=== PATIENT | male | born 1940 | race Caucasian/White ===

== ENCOUNTER 2017-04-06 12:56 | Inpatient (IN) | payer MEDICARE, MEDICAID ==
[2017-04-06] MEDS ORDERED: Acetaminophen TAB* 325 MG PO PRN (18:59)
[2017-04-06] MEDS ORDERED: Ondansetron INJ* 2 MG/ML VIAL IV PRN (18:59)
[2017-04-06] MEDS ORDERED: NS 0.9% 1000 ML* 1,000 ML IV SCH (19:15)
[2017-04-06 19:57] LABS: Hematocrit 35 % (42-52); Hemoglobin 11.6 g/dl (14.0-18.0); Mean Corpuscular HGB Conc 34 g/dl (31-36); Mean Corpuscular Hemoglobin 31 pg (27-31); Mean Corpuscular Volume 92 fL (80-94); Mean Platelet Volume 7 um3 (7.4-10.4); Red Blood Count 3.78 10^6/ul (4.0-5.4); Red Cell Distribution Width 15 % (10.5-15); White Blood Count 7.2 10^3/ul (3.5-10.8)
[2017-04-06 20:09] LABS: Albumin 3.4 g/dL (3.2-5.2); BUN/Creatinine Ratio 17.1 (8-20); Calcium 8.2 mg/dL (8.6-10.3); EGFR Non-African American 54.4 (>60); Globulin 3.3 g/dL (2-4); Potassium 3.7 mmol/L (3.5-5.0); Total Bilirubin 0.3 mg/dL (0.2-1.0); Total Protein 6.7 g/dL (6.4-8.9)
[2017-04-06] MEDS ORDERED: Furosemide TAB* 40 MG PO SCH (21:00)
[2017-04-06] MEDS: Albuterol HFA INHALER* 8 gm MDI INH SCH (21:03)
[2017-04-06] MEDS: Potassium Chlor TAB* 20 MEQ TAB.ER PO SCH (21:17)
[2017-04-06] MEDS: Montelukast Sodium TAB* 10 MG PO SCH (21:17)
[2017-04-06] MEDS: Metoprolol Succinate XL TAB* 50 MG PO SCH (21:17)
[2017-04-06] MEDS: Atorvastatin* 10 MG TAB PO SCH (21:18)
--- NOTE | 2017-04-06 22:20 | HP ---
CC: Dr. Fisher, phone number [phone]; Dr. Juarez; Dr. Hartman * HISTORY AND PHYSICAL: DATE OF ADMISSION: 04/06/17 TIME OF EVALUATION: 6:30 p.m. PRIMARY CARE PROVIDER: Dr. Fisher. CONSULTING AUTOMOTIVE PARTS ADVISOR: Dr. Juarez. CONSULTING GENERAL SURGEON: Dr. Hartman. CHIEF COMPLAINT: "I feel okay now." HISTORY OF PRESENT ILLNESS: Mr. Lamas is a 76-year-old male with a past medical history of dementia, aFib, mild mental retardation, esophagitis, prior history of intestinal perforation requiring resection and anastomosis, who complains at [facility] of bright red blood per rectum and "seeing stars." The patient is a poor historian and cannot provide further information at this time. He denies nausea, vomiting, fever, chills, abdominal pain. At [facility] the patient had a CT of the abdomen and pelvis that showed colonic surgery with dilatation of the colon proximal to anastomosis in the pelvis and the case was discussed with Dr. Gonzáles and his recommendation was to transfer to a facility with and for this reason the patient was transferred to us. At the time of my interview, he states he is feeling well and he states that he is no longer seeing stars and he is actually feeling hungry. PAST MEDICAL HISTORY: 1. Dementia/mild mental retardation. 2. Hypertension. 3. Hyperlipidemia. 4. AFib. 5. GERD. 6. Remote history of intestinal perforation 40 years ago with resection and anastomosis. 7. Renal mass. MEDICATION LIST: 1. Albuterol HFA 2 puffs inhaled q.6 hours. 2. Fluticasone nasal spray 2 sprays to both nares daily. 3. Furosemide 80 mg p.o. b.i.d. 4. Guaifenesin ER 600 mg p.o. b.i.d. as needed for cough. 5. Hydrocortisone 1% topical to legs b.i.d. as needed for itching. 6. Linzess 145 mcg p.o. daily. 7. Loratadine 10 mg p.o. daily. 8. Losartan 100 mg p.o. daily. 9. Metoprolol succinate 50 mg p.o. b.i.d. 10. Montelukast 10 mg p.o. at bedtime. 11. Multivitamin 1 tablet p.o. daily. 12. Omeprazole 40 mg p.o. daily. 13. Potassium chloride 20 mEq p.o. b.i.d. 14. Senna 1 tablet p.o. daily. 15. Simvastatin 20 mg p.o. at bedtime. 16. Tamsulosin 0.4 mg p.o. daily. ALLERGIES: With PENICILLIN and SULFA the patient had a rash. FAMILY HISTORY: As per records from [facility]. The patient has a family history of stroke. SOCIAL HISTORY: There is no history of tobacco, alcohol or drug use. He lives at [facility]. Surrogate decision maker is his sister, Rika Donnelly, phone number is [phone]. REVIEW OF SYSTEMS: I am unable to obtain complete review of systems as the patient's dementia, but all the pertinent findings are in the HPI. PHYSICAL EXAMINATION GENERAL: The patient is a pleasant elderly male, sitting up in the bed in no acute distress. VITAL SIGNS: Temperature 97.7, heart rate is 77, respiratory rate is 18, oxygen saturation is 98% on room air, blood pressure is 124/68. HEENT: Pupils are equal. The patient appears to have had cleft lip surgery. CHEST: Breath sounds present bilaterally with no added sounds. CVS: Normal S1, S2. Irregular. ABDOMEN: Shows mild distention, but it is soft, nontender, nondistended. Bowel sounds are present. EXTREMITIES: No edema. NEUROLOGIC: He is alert, awake, and oriented x2 to self and place. He is able to move all 4 extremities. LABORATORY AND IMAGING DATA: CBC done at [place] showed WBC of 6.5, hemoglobin of 12.3, hematocrit of 36, platelets of 292 with 66% neutrophils. Stool for occult blood was positive. UA was within normal limits. Chemistry showed sodium of 142, potassium 3.6, chloride of 105, bicarbonate of 28, BUN of 24, creatinine of 1.4 (his baseline), glucose of 97, calcium of 8.2, and normal LFTs with albumin of 3.5. INR was 0.[address] was [address] of the abdomen without contrast showed cardiomegaly, lung bases are clear, and air distended colon elevating the right hemidiaphragm, colonic anastomosis in the pelvis with distended colon proximal to anastomosis with distal constipation pattern, small bowel with normal caliber, mass effect from the distended colon, and the liver, spleen, adrenals, pancreas grossly unremarkable. Large bilateral renal cysts. Bilateral inguinal hernias with fat. ASSESSMENT AND PLAN: Mr. Lamas is a 76-year-old male with the past medical history of dementia, mild mental retardation, hypertension, hyperlipidemia, atrial fibrillation, not on anticoagulation, gastroesophageal reflux disease, history of intestinal perforation 40 years ago requiring resection with anastomosis, who was transferred from [place] emergency room due to lower gastrointestinal bleed "seeing stars." 1. Lower GI bleed. It is unclear when this problem started as the patient is a poor historian. His stool for occult blood was positive at [place], but his H and H is 12/36. He will be admitted for observation to the medical floor. We are going to monitor his H and H and I requested a GI consult with Dr. Juarez. For now, I am going to keep him on a clear liquid diet and considering his history of colonic resection with anastomosis, he may require a colonoscopy to evaluate that area. At this point he states that he feels well and he is not "seeing stars anymore. " Another possibility is that his symptoms had nothing to do with the bleed and are actually secondary to dehydration. The patient is on a hefty dose of furosemide 80 mg twice a day and he could be dehydrated and showing signs of orthostatic hypotension. We are going to check orthostatic vital signs at this time. I am going to hold his furosemide for now and give him gentle IV hydration. The CT shows colonic distention, but the patient does not appear to be obstructed at this time. His belly is soft, nontender. He has normal bowel sounds and he states that he had a bowel movement earlier today. I suspect this distention is likely chronic associated with his prior surgery 40 years ago but in any case General Surgery for consultation was requested with Dr. Hartman. 2. Hypertension. We will continue his losartan, metoprolol, with holding parameters. 3. Atrial fibrillation. The patient is not on anticoagulation, we will continue metoprolol. 4. DVT prophylaxis: The patient has a score of 2 with the DVT Prophylaxis Assessment Guide and pharmacological prophylaxis is contraindicated in the setting of GI bleed. He will have SCDs while in bed. 5. Code status: The patient has a healthcare proxy that indicates that the patient would not want life sustaining treatment if he had any irreversible condition, but I do not see a [id number] on the record. His sister was called but did not grape picker the phone, we will try again to clarify his code status. TIME SPENT: Approximately 60 minutes was spent in the patient interview, medical records review, physical examination to complete this admission; more than half of this time was spent [id number] with the patient and coordination of care. [id number]/[facility] #: [id number] CARLOS
[2017-04-07] MEDS: Albuterol HFA INHALER* 8 gm MDI INH SCH ×4 (03:09→19:58)
[2017-04-07 06:22] LABS: Hematocrit 36 % (42-52); Hemoglobin 11.8 g/dl (14.0-18.0); Mean Corpuscular HGB Conc 33 g/dl (31-36); Mean Corpuscular Hemoglobin 30 pg (27-31); Mean Corpuscular Volume 92 fL (80-94); Mean Platelet Volume 7 um3 (7.4-10.4); Red Blood Count 3.88 10^6/ul (4.0-5.4); Red Cell Distribution Width 15 % (10.5-15); White Blood Count 7.1 10^3/ul (3.5-10.8)
[2017-04-07 06:44] LABS: BUN/Creatinine Ratio 14.2 (8-20); Calcium 8.7 mg/dL (8.6-10.3); EGFR African American 71.3 (>60); EGFR Non-African American 55.4 (>60); Potassium 3.9 mmol/L (3.5-5.0)
[2017-04-07] MEDS: Fluticasone NASAL SPRAY 50MCG* 16 gm SPRAY BTL BOTH NARES SCH (08:45)
[2017-04-07] MEDS: Tamsulosin CAP* 0.4 MG PO SCH (09:17)
[2017-04-07] MEDS: Losartan TAB* 25 MG PO SCH (09:17)
[2017-04-07] MEDS: Omeprazole CAP* 20 MG PO SCH (09:17)
[2017-04-07] MEDS: Multivitamins/Minerals TAB PO SCH (09:17)
[2017-04-07] MEDS: Metoprolol Succinate XL TAB* 50 MG PO SCH ×2 (09:17→20:12)
[2017-04-07] MEDS: Senna TAB PO SCH (09:17)
[2017-04-07] MEDS: Cetirizine* 10 MG TAB PO SCH (09:17)
[2017-04-07] MEDS: Potassium Chlor TAB* 20 MEQ TAB.ER PO SCH ×2 (09:17→20:16)
--- NOTE | 2017-04-07 10:44 | PN ---
Progress Note - Progress Note Date of Service: 04/07/17 SOAP: Subjective: [] Patient seen earlier this morning Full consult dictated He was admitted with rectal bleeding. CT at [facility] yesterday shows dilated right and transverse colon with stool distally. He has had a colon resection many years ago-records not available. Review of CT's of abd/pelvis done at [facility] in 2101 and 2014 show similar proximal colon distension as the study from yesterday. I suspect this is a motility or post-operative finding--he has no abdominal pain and is comfortable. There does not appear to be continued rectal bleeding. He shows no signs of obstruction. Observation recommended from a surgical standpoint.
--- NOTE | 2017-04-07 12:47 | PN ---
Subjective Date of Service: 04/07/17 Interval History: HOSPITALIST PROGRESS NOTE Patient seen and examined at bedside. He offers no new complaints at this time. No further BMs or BRBPR. Denies abdominal pain and feels hungry. Family History: Unchanged from Admission Social History: Unchanged from Admission Past Medical History: Unchanged from Admission Objective Active Medications: Acetaminophen (Tylenol Tab*) 650 mg PO Q6H PRN PRN Reason: pain/fever Albuterol (Ventolin Hfa Inhaler*) 2 puff INH Q6H [facility] Last Admin: 04/07/17 12:27 Dose: 2 puff Atorvastatin Calcium (Lipitor*) 10 mg PO BEDTIME [facility] Last Admin: 04/06/17 21:18 Dose: 10 mg Cetirizine HCl (Zyrtec*) 10 mg PO DAILY [facility] Last Admin: 04/07/17 09:17 Dose: 10 mg Fluticasone Propionate (Flonase Nasal [place] 50mcg*) 2 spray BOTH NARES DAILY [facility] Furosemide (Lasix Tab*) 40 mg PO 0800,1700 [facility] Sodium Chloride (Ns 0.9% 1000 Ml*) 1,000 mls @ 75 mls/hr IV PER RATE [facility] Last Admin: 04/06/17 21:52 Dose: 75 mls/hr Losartan Potassium (Cozaar Tab*) 100 mg PO DAILY [facility] Last Admin: 04/07/17 09:17 Dose: 100 mg Metoprolol Succinate (Toprol Xl Tab*) 50 mg PO BID [facility] Last Admin: 04/07/17 09:17 Dose: 50 mg Montelukast Sodium (Singulair Tab*) 10 mg PO BEDTIME [facility] Last Admin: 04/06/17 21:17 Dose: 10 mg Multivitamins/Minerals (Theragran/Minerals Tab*) 1 tab PO DAILY [facility] Last Admin: 04/07/17 09:17 Dose: 1 tab Omeprazole (Prilosec Cap*) 40 mg PO DAILY@0730 [facility] Last Admin: 04/07/17 09:17 Dose: 40 mg Ondansetron HCl (Zofran Inj*) 4 mg IV Q6H PRN PRN Reason: NAUSEA Potassium Chloride (Klor Con Er Tab*) 20 meq PO BID [facility] Last Admin: 04/07/17 09:17 Dose: 20 meq Senna (Senokot Tab*) 1 tab PO DAILY [facility] Last Admin: 04/07/17 09:17 Dose: 1 tab Tamsulosin HCl (Flomax Cap*) 0.4 mg PO DAILY [facility] Last Admin: 04/07/17 09:17 Dose: 0.4 mg Vital Signs - 8 hr 04/07/17 04/07/17 07:47 11:28 Temperature 98.1 F 98.1 F Pulse Rate 67 52 Respiratory 14 14 Rate Blood Pressure 127/72 112/62 (mmHg) O2 Sat by Pulse 96 99 Oximetry Oxygen Devices in Use Now: None Appearance: Pleasant elderly male lying in bed in NAD. Eyes: No Scleral Icterus Ears/Nose/Mouth/Throat: Mucous Membranes Moist Neck: Trachea Midline Respiratory: Symmetrical Chest Expansion and Respiratory Effort, Clear to Auscultation Cardiovascular: RRR - Normal S1 and S2 Abdominal: - - Soft, mild distention, NT, BS+ Neurological: - - AAOx2 (self and place), RHOADES Result Diagrams: 04/07/17 06:05 04/07/17 06:05 Assess/Plan/Problems-Billing Assessment: Mr. Lamas is a 76yo M with PMH of dementia/mild MR, HTN, HLD, Afib, GERD, intestinal perforation with resection and anastomosis > 40 years ago, transferred from [facility] due to BRBPR and "seeing stars". - Patient Problems (1) Lower GI bleed Comment: - No further episodes, H/H remains stable. - GI input appreciated - would not recommend any further w/u at this point. His colonic distention appears to be chronic and he has had no more episodes of bleeding at this point with no significant drop in his H/H. - Start consistent carb diet as per GI recommendation (to avoid fermentation). (2) Dizziness Comment: - Suspect his "seeing starts" complaints is likely associated with dehydration associated with diuretic use. - He feels better today. - Resume Furosemide but at a lower dose. (3) HTN (hypertension) Comment: - Controlled. - Continue Losartan, Metoprolol with hold paramenters. (4) Afib Comment: - Continue Metoprolol. (5) Physical deconditioning Comment: - PT/OT consult. (6) DVT prophylaxis Comment: - SCDs. - Pharmacological prophylaxis contraindicated in the setting of LGI bleed. (7) DNR (do not resuscitate) Current Visit: Yes Status: Acute
--- NOTE | 2017-04-07 15:18 | CONS ---
GASTROENTEROLOGY CONSULT: DATE OF CONSULT: 04/07/17 CONSULTING PHYSICIAN: Debo Patterson REASON FOR CONSULT: Colonic distention and rectal bleeding in a man who complained of rectal bleeding and said he was seeing stars upon transfer. HISTORY OF PRESENT ILLNESS: This 76-year-old man, a long-term resident of an assisted living facility ([facility]) was transferred over having reported seeing blood and complaining of seeing stars. In the emergency room here, he had said that he was feeling better. Under observation overnight, he has not had any vomiting, fever or passage of anymore blood. There has been just a little bit of smeared stool. CT scan yesterday at [place] did show a dilated transverse and right colon. The rectum had a little bit of liquid stool and was slightly distended and then there was a long segment best seen on the sagittal CAT scan images 77 to 83 with a stricture and anastomotic calcification. He had had a left colon resection 40 years ago for perforation, the exact nature unknown. Dr. Hartman who can remote into [facility] records found that he has had a dilated colon on several imaging studies over the last 6 to 7 years. His sister said his abdomen always looks a little distended. He has not had any fever. PAST MEDICAL HISTORY: 1. Dementia - mental retardation. 2. Hypertension. 3. Hyperlipidemia. 4. Atrial fibrillation. 5. GERD. 6. Status post left colonic resection with chronic right colon dilation. 7. Renal mass - not fully explored. MEDICATIONS: The list reviewed and includes: 1. Linzess. 2. Omeprazole. 3. Senna. 4. Simvastatin. SOCIAL HISTORY: He is a long-term resident of [facility]. REVIEW OF SYSTEMS: The nature and location of his colon resection is unknown even to his sister. The details of the renal mass are not known. Apparently, he has a good appetite. He has no history of CVA or seizure, hematuria or anemia. PHYSICAL EXAM: He has a cleft lip. He is conversant and pleasant. He has no adenopathy. His lungs are clear and heart sounds are normal. The abdomen is distended and soft. Bowel sounds are present and normal. Perianal inspection is normal and rectal reveals dilated rectum filled with soupy brown stool that floods out with lateral pressure on the anal canal, probably 400 cc. Extremities show no edema. DIAGNOSTIC STUDIES: CT reviewed - transverse colon of 11 cm. The sagittal views show a collapsed area of sigmoid. 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 This has resulted in fermentation of the stool and a typical presentation to the rectum of liquid stool. What was discharged appears to be a chronic process. Fully assessing this by cleaning him out would be a very burdensome process and fraught with potential complications. This was discussed with Dr. Patterson and Dr Gonzáles. [id number]/[facility] #: [id number] [facility]ENTERRamez
[2017-04-07] MEDS: Furosemide TAB* 40 MG PO SCH (17:07)
[2017-04-07] MEDS: Atorvastatin* 10 MG TAB PO SCH (20:16)
[2017-04-07] MEDS: Montelukast Sodium TAB* 10 MG PO SCH (20:17)
--- NOTE | 2017-04-07 22:05 | CONS ---
CC: [facility]; [facility] in [place], [place] * CONSULTATION REPORT: DATE OF CONSULT: 04/07/17 REFERRING PROVIDER: Dr. Debo Patterson, hospitalist. REASON FOR CONSULTATION: Colonic distention noted on CT scan. HISTORY OF PRESENT ILLNESS: Mr. Corey Lamas is a 76-year-old gentleman lives in the [facility] in [place], [place] where he has a history of dementia , atrial fibrillation, mild mental retardation, and history of an intestinal perforation requiring resection and anastomosis many years ago in [place]. We do not have these records at present. He was transferred from [facility] yesterday after he presented with rectal bleeding and dizziness. He is a poor historian and by consultation is mainly from our current [facility] records as well as records from [facility] including review of CT scans. He initially presented to the emergency room out in [place] was noted to be hemodynamically stable with a hemoglobin a little over 12. He underwent a CT scan there, which showed dilated right colon and transverse colon with what appears to be anastomotic looked area in the mid descending colon with stool beyond this area. There was no evidence of small bowel obstruction or other acute findings. Since being transferred, he has not had any further significant bleeding and serial hemoglobin and hematocrits have been stable and he has been remained hemodynamically stable. PAST MEDICAL HISTORY: 1. Dementia/mild mental retardation. 2. Hypertension. 3. Hyperlipidemia. 4. Atrial fibrillation. 5. GERD. MEDICATIONS: Include: 1. Albuterol. 2. Fluticasone. 3. Furosemide. 4. Guaifenesin. 5. Hydrocortisone topical. 6. Linzess. 7. Losartan. 8. Metoprolol. 9. Multivitamins. 10. Montelukast. 11. Omeprazole. 12. Simvastatin. 13. Tamsulosin. ALLERGIES: He is allergic to PENICILLIN and SULFA. SOCIAL HISTORY: There is no history of tobacco, alcohol, or drug abuse. He lives at the [facility] and his surrogate decision maker is his sister. PHYSICAL EXAM: In general, he is a pleasant elderly male, sitting up in bed, is quite pleasant, alert and conversive. Temperature 98.1, pulse 52, blood pressure 112/62. His lungs were clear to auscultation. Heart: Regular rate and rhythm without murmurs, rubs, or gallops. Abdomen: Soft, slightly distended. There is a well-healed midline incision without hernia. There is no tenderness. He had normoactive bowel sounds throughout. No rebound or guarding noted. DIAGNOSTIC STUDIES/LAB DATA: White blood cell count of 7, hemoglobin of 11.8, which is unchanged from admission. Electrolytes, BUN and creatinine are all within normal limits. I reviewed CT scans from [facility] on 2012 as well as 2015. These shows similar findings of marked distention of the right and transverse colon extending down to what appears to be a previous stapled anastomosis with stool beyond the area. There is no evidence of small bowel obstruction. There is no change in the studies from yesterday's compared to these previous 2 studies. IMPRESSION: Colonic distention as per above. I suspect this to be motility related and possibly related to previous surgery. We are not sure the indications of surgery but he describes this as possibly being being a volvulus , but I am not certain at this time. He has no evidence of obstruction and does not appear to have rectal bleeding at this point. He has remained hemodynamically stable with no significant change in his hemoglobin. At this point, I would continue observation notes, specific surgical recommendations or indications at this time. I did discuss the care with Dr. Patterson as well as Dr. Juarez. Thank you very much for this consultation. [id number]/[facility] #: [id number] CARLOS
[2017-04-08] MEDS: Albuterol HFA INHALER* 8 gm MDI INH SCH ×3 (01:14→13:02)
[2017-04-08] MEDS: Cetirizine* 10 MG TAB PO SCH (07:49)
[2017-04-08] MEDS: Omeprazole CAP* 20 MG PO SCH (07:49)
[2017-04-08] MEDS: Tamsulosin CAP* 0.4 MG PO SCH (07:50)
[2017-04-08] MEDS: Senna TAB PO SCH (07:50)
[2017-04-08] MEDS: Furosemide TAB* 40 MG PO SCH (07:50)
[2017-04-08] MEDS: Multivitamins/Minerals TAB PO SCH (07:50)
[2017-04-08] MEDS: Metoprolol Succinate XL TAB* 50 MG PO SCH (07:50)
[2017-04-08] MEDS: Losartan TAB* 25 MG PO SCH (07:50)
[2017-04-08] MEDS: Potassium Chlor TAB* 20 MEQ TAB.ER PO SCH (07:50)
[2017-04-08] MEDS: Fluticasone NASAL SPRAY 50MCG* 16 gm SPRAY BTL BOTH NARES SCH (08:08)
[2017-04-08 10:07] VITALS: BP 128/70
--- NOTE | 2017-04-09 11:46 | DS ---
CC: Dr. Fisher, phone number [phone]. DISCHARGE SUMMARY: DATE OF ADMISSION: 04/06/17 DATE OF DISCHARGE: 04/08/17 PRIMARY CARE PROVIDER: Dr. Fisher. DISCHARGE DIAGNOSES: 1. Lower gastrointestinal bleed. 2. Chronic colonic distention. 3. Dizziness, likely secondary to over diuresis. SECONDARY DIAGNOSES: 1. Mild mental retardation. 2. Hyperlipidemia. 3. Atrial fibrillation. 4. GERD. 5. History of intestinal perforation 40 years ago with resection and anastomosis. 6. Renal mass. MEDICATION LIST: 1. Albuterol HFA 2 puffs inhaled q. 6 hours. 2. Fluticasone nasal spray 50 mcg 2 sprays to both nares daily. 3. Guaifenesin ER 600 mg p.o. b.i.d. p.r.n. cough. 4. Hydrocortisone 1% cream topical b.i.d. as needed for itching. 5. Linzess 145 mcg p.o. daily. 6. Loratadine 10 mg p.o. daily. 7. Losartan 100 mg p.o. daily. 8. Metoprolol succinate 50 mg p.o. b.i.d. 9. Montelukast 10 mg p.o. at bedtime. 10. Multivitamin 1 tablet p.o. daily. 11. Omeprazole 40 mg p.o. daily. 12. Potassium chloride 10 mEq p.o. b.i.d. 13. Senna 1 tablet p.o. daily. 14. Simvastatin 20 mg p.o. bedtime. 15. Tamsulosin 0.4 mg p.o. daily. Medication change: Furosemide was reduced to 40 mg p.o. b.i.d. HOSPITAL COURSE: Mr. Lamas is a 76-year-old male with a past medical history as stated above that initially presented to [facility] emergency room with reports of bright red blood per rectum and "see ing stars." He was transferred to our facility for GI evaluation. For more details about his presen tation, I refer you to his history and physical. The patient was admitted to the medical floor where he had serial H and H is that remained stable and he was seen in consultation by general surgery (Dr. Hartman) that felt that the patient's colonic distention was chronic, as he was able to review CT scans from 2011 as well as 2014 done at [facility] that showed similar findings of marked distention of the right and transverse colon extendin g down to what appears to be a previous stapled anastomosis with stool beyond the area. He suspected this was motility related and possibly related to previous surgery. He did not feel there was any i ndication for surgery and he was not certain that this represented a volvulus. He felt that the jane ent had no evidence of obstruction and did not appear to have a rectal bleeding at that point. The patient had a large brown bowel movement while in the hospital with no signs of bleeding. He was also seen in consultation by gastroenterology (Dr. Juarez) and his impression was that the pa anaya had chronic anastomotic stricture with longstanding proximal colon distention. This has result ed in fermentation of the stool and presentation to the rectum of liquid stool. He felt that fully a ssessing him by doing a colonoscopy prep would be a very burdensome process and fraught with potentia l complications, so his recommendation at this point was just to observe the patient and do not pursu e any further workup. The patient tolerated diet well. Dr. Juarez recommended a low carb diet to try and avoid fermentati on in his colon. The patient complains of seeing stars, this likely associated with hypotension secondary to over diur esis. He received gentle IV hydration initially and then his furosemide dose was decreased to 40 mg twice a day. He will need to follow up with his primary care provider to continue to monitor his flu id status. His weight will be checked 3 times a week and if he gains more than 2 pounds his furosemi de dose would need to be adjusted. Patient is medically stable to be discharged home today to follow up with his primary care provider a s outpatient. Of note is the fact that his CT from [facility] showed larger bilateral renal cysts, but the patient murcia s a no history of a renal mass, so we will defer the possibility of pursuing workup to his family car e provider that knows him well. PHYSICAL EXAMINATION: Vital Signs: Temperature 97.2, heart rate is 64, respiratory rate is 16, oxyg en saturation is 95% on room air, blood pressure is 128/70 General: Patient is a pleasant elderly m robbie, sitting up in bed, in no acute distress. CVS: Normal S1, S2. Regular rate and rhythm. Chest: Breath sounds present bilaterally, no added sounds. Abdomen is mildly distended soft, nontender, no ndistended. Bowel sounds are present. Extremities: Trace edema. Neuro: He is alert and oriented x 3. Able to move all 4 extremities. DIET: Consistent carb diet. ACTIVITIES: As tolerated DISPOSITION: Back to [facility]. STATUS IN THE HOSPITAL: Inpatient. Please keep in mind this is a summarized version of this patient's hospital stay. If you need more in formation, please feel free to call me at [phone] or please obtain the full medical records. TIME SPENT: Approximately 45 minutes was spent to complete this discharge. [id number]/[facility] #: [id number]
== END 2017-04-08 15:25 | disposition home or self-care (01) | DRG 379 ==
LOC: MED 12:56 → INTOOBSV 18:19 → OBSVTOIN 04-07 12:56
PROVIDERS: ADMIT Internal Medicine; ATTEND Internal Medicine
DX: K92.1 Melena (principal); I48.91 Unspecified atrial fibrillation; F03.90 Unspecified dementia, unspecified severity, without behavioral disturbance, psychotic disturbance, mood disturbance, and anxiety; K63.89 Other specified diseases of intestine; R42 Dizziness and giddiness; R35.8 Other polyuria; F70 Mild intellectual disabilities; E78.5 Hyperlipidemia, unspecified; K21.9 Gastro-esophageal reflux disease without esophagitis; N28.89 Other specified disorders of kidney and ureter; I10 Essential (primary) hypertension; Z79.899 Other long term (current) drug therapy; Z88.0 Allergy status to penicillin; Z88.2 Allergy status to sulfonamides; Z82.3 Family history of stroke; Z66 Do not resuscitate
CPT/HCPCS: 36415; 80048; 80053; 82270; 85025; 87641; 94640; 94760; A9270-GY; G0378

== ENCOUNTER 2020-06-09 12:16 | Inpatient (IN) ==
[2020-06-09] MEDS ORDERED: Albuterol HFA INHALER 8 gm MDI INH PRN (18:33)
[2020-06-09] MEDS ORDERED: Enoxaparin 80 MG/0.8 ML SYR SUBCUT SCH (19:00)
[2020-06-09] MEDS: Enoxaparin 80 MG/0.8 ML SYR SUBCUT SCH (19:09)
[2020-06-10 05:13] LABS: ABS Eosinophils 0.1 10^3/ul (0-0.6); ABS Monocytes 0.5 10^3/ul (0-0.8); ABS Neutrophils 3.9 10^3/ul (1.5-7.7); Eosinophil % 2.6 %; Hematocrit 32 % (42-52); Hemoglobin 10.7 g/dL (14.0-18.0); Lymphocyte % 18.6 %; Mean Corpuscular HGB Conc 33 g/dL (31-36); Mean Corpuscular Hemoglobin 31 pg (27-31); Mean Corpuscular Volume 94 fL (80-94); Mean Platelet Volume 6.8 fL (7.4-10.4); Platelet Count 264 10^3/uL (150-450); Red Blood Count 3.41 10^6 /uL (4.18-5.48); Red Cell Distribution Width 19 % (10-15); White Blood Count 5.6 10^3/uL (3.5-10.8)
[2020-06-10 05:30] LABS: ALT 74 U/L (7-52); AST 55 U/L (13-39); Albumin 3.2 g/dL (3.2-5.2); Alkaline Phosphatase 178 U/L (34-104); Anion Gap 6 mmol/L (2-11); BUN/Creatinine Ratio 16.5 (8-20); Blood Urea Nitrogen 22 mg/dL (6-24); CO2 Carbon Dioxide 24 mmol/L (22-32); Calcium 8.3 mg/dL (8.6-10.3); Chloride 106 mmol/L (101-111); EGFR African American 63.1 (>60); EGFR Non-African American 52.1 (>60); Globulin 3.1 g/dL (2-4); Glucose 98 mg/dL (70-100); Potassium 3.9 mmol/L (3.5-5.0); Sodium 136 mmol/L (135-145); Total Protein 6.3 g/dL (6.4-8.9)
[2020-06-10] MEDS: Fluticasone NASAL SPRAY 50MCG 16 gm SPRAY BTL INTRANASAL SCH (08:17)
[2020-06-10] MEDS: Senna TAB 8.6 mg TAB PO SCH (08:18)
[2020-06-10] MEDS: Multivitamins/Minerals TAB PO SCH (08:18)
[2020-06-10] MEDS: LINACLOTIDE 145 MG PO SCH (08:18)
[2020-06-10] MEDS: Enoxaparin 80 MG/0.8 ML SYR SUBCUT SCH (08:21)
[2020-06-10 09:11] LABS: % Iron Saturation 18 % (15-55); Iron 48 ug/dL (50-212); Total Iron Binding Capacity 267 mcg/dL (250-450); Transferrin 191 mg/dL (203-362); Unsaturated Iron Binding < 252 ug/dL
[2020-06-10 09:37] LABS: Folate > 20.00 ng/mL (>3.99)
[2020-06-10 09:38] LABS: Vitamin B12 387 pg/mL (180-914)
[2020-06-10 10:10] LABS: Urine Appearance Cloudy; Urine Bacteria Absent (Absent); Urine Bilirubin Negative (Negative); Urine Blood 3+ (Negative); Urine Glucose Negative (Negative); Urine Ketones Negative (Negative); Urine Nitrite Negative (Negative); Urine Protein 2+(100 mg/dL) (Negative); Urine Red Blood Cell 3+(>10/hpf) (Absent); Urine Specific Gravity 1.016 (1.010-1.030); Urine Urobilinogen Negative (Negative); Urine White Blood Cell 3+(>20/hpf) (Absent)
[2020-06-10 10:49] LABS: Urine Color Orange
[2020-06-11 06:21] LABS: ABS Eosinophils 0.1 10^3/ul (0-0.6); ABS Monocytes 0.4 10^3/ul (0-0.8); ABS Neutrophils 4.1 10^3/ul (1.5-7.7); Eosinophil % 2.1 %; Hematocrit 32 % (42-52); Hemoglobin 10.4 g/dL (14.0-18.0); Lymphocyte % 17.1 %; Mean Corpuscular HGB Conc 33 g/dL (31-36); Mean Corpuscular Hemoglobin 31 pg (27-31); Mean Corpuscular Volume 95 fL (80-94); Mean Platelet Volume 6.4 fL (7.4-10.4); Platelet Count 290 10^3/uL (150-450); Red Blood Count 3.34 10^6 /uL (4.18-5.48); Red Cell Distribution Width 20 % (10-15); White Blood Count 5.7 10^3/uL (3.5-10.8)
[2020-06-11 06:37] LABS: BUN/Creatinine Ratio 15.1 (8-20); Calcium 8.2 mg/dL (8.6-10.3); EGFR African American 54.1 (>60); EGFR Non-African American 44.7 (>60); Potassium 3.7 mmol/L (3.5-5.0)
[2020-06-11] MEDS: Multivitamins/Minerals TAB PO SCH (09:04)
[2020-06-11] MEDS: Senna TAB 8.6 mg TAB PO SCH (09:04)
[2020-06-11] MEDS: LINACLOTIDE 145 MG PO SCH (09:21)
[2020-06-11] MEDS: Fluticasone NASAL SPRAY 50MCG 16 gm SPRAY BTL INTRANASAL SCH (10:56)
[2020-06-11 13:40] VITALS: BP 144/71
== END 2020-06-11 15:12 | disposition swing bed (61) | DRG 299 ==
LOC: SSU 14:08 → MED 06-11 08:56
PROVIDERS: ADMIT Internal Medicine; ATTEND Internal Medicine

== ENCOUNTER 2020-06-11 15:21 | Inpatient (IN) ==
[2020-06-11] MEDS ORDERED: Albuterol HFA INHALER 8 gm MDI INH PRN (15:56)
[2020-06-11] MEDS: Fluticasone NASAL SPRAY 50MCG 16 gm SPRAY BTL INTRANASAL SCH (21:49)
[2020-06-12 06:27] LABS: Albumin 2.9 g/dL (3.2-5.2); Calcium 8.2 mg/dL (8.6-10.3); Potassium 3.5 mmol/L (3.5-5.0); Total Bilirubin 0.5 mg/dL (0.2-1.0)
[2020-06-12 06:33] LABS: Albumin/Globulin Ratio 0.9 (1-3); EGFR African American 59.5 (>60); EGFR Non-African American 49.1 (>60); Globulin 3.1 g/dL (2-4)
[2020-06-12] MEDS: Multivitamins/Minerals TAB PO SCH (09:36)
[2020-06-12] MEDS: Potassium Chlor 20 meq TAB.ER PO SCH (09:36)
[2020-06-12] MEDS: CMCS: LINACLOTIDE 72 MCG CAP (NF) PO SCH (09:37)
[2020-06-12] MEDS: Fluticasone NASAL SPRAY 50MCG 16 gm SPRAY BTL INTRANASAL SCH ×2 (09:37→20:37)
[2020-06-12] MEDS: Senna TAB 8.6 mg TAB PO SCH (09:37)
[2020-06-13] MEDS: Potassium Chlor 20 meq TAB.ER PO SCH (09:21)
[2020-06-13] MEDS: Fluticasone NASAL SPRAY 50MCG 16 gm SPRAY BTL INTRANASAL SCH ×2 (09:22→21:54)
[2020-06-13] MEDS: Senna TAB 8.6 mg TAB PO SCH (09:23)
[2020-06-13] MEDS: Multivitamins/Minerals TAB PO SCH (09:23)
[2020-06-13] MEDS: CMCS: LINACLOTIDE 72 MCG CAP (NF) PO SCH (12:13)
[2020-06-14] MEDS: Fluticasone NASAL SPRAY 50MCG 16 gm SPRAY BTL INTRANASAL SCH ×2 (08:15→20:35)
[2020-06-14] MEDS: Potassium Chlor 20 meq TAB.ER PO SCH (08:15)
[2020-06-14] MEDS: Multivitamins/Minerals TAB PO SCH (08:15)
[2020-06-15] MEDS: Multivitamins/Minerals TAB PO SCH (09:36)
[2020-06-15] MEDS: Potassium Chlor 20 meq TAB.ER PO SCH (09:36)
[2020-06-15] MEDS: Fluticasone NASAL SPRAY 50MCG 16 gm SPRAY BTL INTRANASAL SCH ×2 (09:37→19:58)
[2020-06-16] MEDS: Multivitamins/Minerals TAB PO SCH (09:57)
[2020-06-16] MEDS: Potassium Chlor 20 meq TAB.ER PO SCH (09:58)
[2020-06-16] MEDS: Fluticasone NASAL SPRAY 50MCG 16 gm SPRAY BTL INTRANASAL SCH ×2 (10:01→20:39)
[2020-06-16 12:17] LABS: Urine Appearance Cloudy; Urine Bilirubin Negative (Negative); Urine Blood 3+ (Negative); Urine Color Yellow; Urine Glucose Negative (Negative); Urine Ketones Negative (Negative); Urine Nitrite Negative (Negative); Urine Protein 2+(100 mg/dL) (Negative); Urine Specific Gravity 1.015 (1.010-1.030); Urine Urobilinogen Negative (Negative)
[2020-06-16 13:19] LABS: Urine Bacteria Absent (Absent); Urine Red Blood Cell 3+(>10/hpf) (Absent); Urine White Blood Cell 3+(>20/hpf) (Absent)
[2020-06-17] MEDS: Multivitamins/Minerals TAB PO SCH (07:54)
[2020-06-17] MEDS: Potassium Chlor 20 meq TAB.ER PO SCH (07:55)
[2020-06-17] MEDS: Fluticasone NASAL SPRAY 50MCG 16 gm SPRAY BTL INTRANASAL SCH ×2 (07:56→21:33)
[2020-06-18 06:51] LABS: ABS Eosinophils 0.1 10^3/ul (0-0.6); ABS Lymphocytes 1.2 10^3/ul (1.0-4.8); ABS Monocytes 0.9 10^3/ul (0-0.8); ABS Neutrophils 10.5 10^3/ul (1.5-7.7); Eosinophil % 0.6 %; Hematocrit 30 % (42-52); Hemoglobin 9.8 g/dL (14.0-18.0); Lymphocyte % 9.3 %; Mean Corpuscular HGB Conc 33 g/dL (31-36); Mean Corpuscular Hemoglobin 32 pg (27-31); Mean Corpuscular Volume 97 fL (80-94); Mean Platelet Volume 6.4 fL (7.4-10.4); Platelet Count 398 10^3/uL (150-450); Red Blood Count 3.09 10^6 /uL (4.18-5.48); Red Cell Distribution Width 20 % (10-15); White Blood Count 12.7 10^3/uL (3.5-10.8)
[2020-06-18 07:15] LABS: BUN/Creatinine Ratio 20.2 (8-20); Calcium 8.6 mg/dL (8.6-10.3); EGFR African American 49.9 (>60); EGFR Non-African American 41.2 (>60); Potassium 4.3 mmol/L (3.5-5.0)
[2020-06-18] MEDS: cefTRIAXone 1 gm/50 mL NS BAG 1 GM/50 ML BAG IVPB SCH (07:53)
[2020-06-18] MEDS: Fluticasone NASAL SPRAY 50MCG 16 gm SPRAY BTL INTRANASAL SCH ×2 (07:57→19:22)
[2020-06-18] MEDS: Potassium Chlor 20 meq TAB.ER PO SCH (07:57)
[2020-06-18] MEDS: Multivitamins/Minerals TAB PO SCH (07:57)
[2020-06-18] MEDS: Magnesium Hydroxide LIQ 30 ML UDC PO SCH (19:22)
[2020-06-19 06:20] LABS: ABS Basophils 0.1 10^3/ul (0-0.2); ABS Eosinophils 0.1 10^3/ul (0-0.6); ABS Lymphocytes 1.2 10^3/ul (1.0-4.8); ABS Monocytes 0.8 10^3/ul (0-0.8); Eosinophil % 0.9 %; Hematocrit 29 % (42-52); Hemoglobin 9.5 g/dL (14.0-18.0); Lymphocyte % 10.7 %; Mean Corpuscular HGB Conc 33 g/dL (31-36); Mean Corpuscular Hemoglobin 32 pg (27-31); Mean Corpuscular Volume 97 fL (80-94); Mean Platelet Volume 6.5 fL (7.4-10.4); Platelet Count 395 10^3/uL (150-450); Red Blood Count 2.99 10^6 /uL (4.18-5.48); Red Cell Distribution Width 20 % (10-15); White Blood Count 11.2 10^3/uL (3.5-10.8)
[2020-06-19 06:37] LABS: BUN/Creatinine Ratio 21.3 (8-20); Calcium 8.7 mg/dL (8.6-10.3); EGFR African American 49.5 (>60); EGFR Non-African American 40.9 (>60); Potassium 4.2 mmol/L (3.5-5.0)
[2020-06-19] MEDS: cefTRIAXone 1 gm/50 mL NS BAG 1 GM/50 ML BAG IVPB SCH (09:51)
[2020-06-19] MEDS: Magnesium Hydroxide LIQ 30 ML UDC PO SCH ×2 (09:53→20:25)
[2020-06-19] MEDS: Multivitamins/Minerals TAB PO SCH (09:56)
[2020-06-19] MEDS: Potassium Chlor 20 meq TAB.ER PO SCH (09:57)
[2020-06-19] MEDS: Fluticasone NASAL SPRAY 50MCG 16 gm SPRAY BTL INTRANASAL SCH ×2 (09:58→20:26)
[2020-06-19] MEDS ORDERED: Polyethylene Glycol 3350 17 GM PACKET PO PRN (14:22)
[2020-06-20 07:45] VITALS: BP 133/80
[2020-06-20] MEDS: Potassium Chlor 20 meq TAB.ER PO SCH (09:20)
[2020-06-20] MEDS: Multivitamins/Minerals TAB PO SCH (09:20)
[2020-06-20] MEDS: Fluticasone NASAL SPRAY 50MCG 16 gm SPRAY BTL INTRANASAL SCH (09:21)
[2020-06-20] MEDS: Magnesium Hydroxide LIQ 30 ML UDC PO SCH (09:21)
== END 2020-06-20 16:00 | DRG 178 ==
LOC: MED 15:21
PROVIDERS: ADMIT Internal Medicine; ATTEND Internal Medicine